=== PATIENT | female | born 1980 | race Caucasian/White ===

== ENCOUNTER 2019-03-23 13:34 | Emergency (ER) | payer OTHER ==
[~2019-03-23] VITALS: Ht 154.9 cm; Wt 54.4 kg
[~2019-03-23 13:34] MED LIST: BACTRIM DS TAB1 EACH PO; DOXYCYCLINE 10100 MG PO; HYDROCODON-ACE1 EAC7 PO; HYDROCODONE-AP1 EAC6 PO; LISINOPRIL10 MG PO; MIRALAX17 GM PO; PENICILLIN VK500 MG PO; PROZAC10 MG PO
[2019-03-23 15:41] VITALS: BP 132/87
== END 2019-03-23 15:43 | disposition home or self-care (01) ==
LOC: M.ERS 13:34
DX: S61.210A Laceration without foreign body of right index finger without damage to nail, initial encounter (principal); I10 Essential (primary) hypertension; Z87.442 Personal history of urinary calculi; Z88.2 Allergy status to sulfonamides; Z88.8 Allergy status to other drugs, medicaments and biological substances; W26.0XXA Contact with knife, initial encounter; Y92.89 Other specified places as the place of occurrence of the external cause; Y93.89 Activity, other specified; Y99.8 Other external cause status

== ENCOUNTER 2020-01-30 15:30 | Emergency (ER) | payer OTHER ==
[~2020-01-30] VITALS: Ht 157.5 cm; Wt 68.0 kg
[2020-01-30 15:49] LABS: URINE BILIRUBIN NEGATIVE (Negative); URINE BLOOD 3+ (Negative); URINE CLARITY CLOUDY; URINE COLOR STRAW; URINE GLUCOSE-RANDOM NEGATIVE (Negative); URINE KETONES NEGATIVE (Negative); URINE PROTEIN TRACE (Negative); URINE SPECIFIC GRAVITY >= 1.030 (1.005-1.030); URINE UROBILINOGEN 0.2 E.U./dl (0.2-1.0)
[2020-01-30 15:51] LABS: URINE LEUKOCYTES-REFLEX 3+ (Negative); URINE NITRITE-REFLEX POSITIVE (Negative)
[2020-01-30 16:07] LABS: BACTERIA-REFLEX >30 Many /HPF (None Seen); CASTS None Seen /LPF (None Seen); CRYSTALS None Seen /LPF (None Seen); SQUAMOUS >10 Many /LPF (0-3); URINE RBC >20 Many /HPF (0-2); URINE WBC-REFLEX >25 Many /HPF (0-5)
[2020-01-30 16:10] LABS: ABSOLUTE EOSINOPHILS 0.1 thou/uL (0.0-0.7); ABSOLUTE LYMPHOCYTES 0.8 thou/uL (0.8-5.3); ABSOLUTE MONOCYTES 0.6 thou/uL (0.0-1.2); ABSOLUTE NEUTROPHILS 6.8 thou/uL (1.6-8.1); BASOPHILS 0.2 %; EOSINOPHILS 0.8 %; HEMATOCRIT 32.5 % (37.0-47.0); HEMOGLOBIN 10.4 gm/dL (12.0-15.0); LYMPHOCYTES 9.6 %; MCH 23.1 pg (26.0-34.0); MCV 72.2 fL (80.0-100.0); MONOCYTES 6.7 %; MPV 7.8 fl. (7.2-11.1); NUCLEATED RBCS 0 /100WBC; PLATELET COUNT* 188 thou/uL (150-400); POLYS 82.7 %; RBC 4.51 mil/uL (4.20-5.00); RDW-CV 17.3 % (10.5-14.5); WBC 8.2 thou/uL (4.0-11.0)
[2020-01-30 16:17] LABS: CALCIUM 8.8 mg/dL (8.5-10.1); CREATININE 0.8 mg/dL (0.6-1.3); POTASSIUM 3.8 mmol/L (3.5-5.1)
[2020-01-30 16:26] LABS: ALBUMIN 3.6 g/dL (3.4-5.0); TOTAL BILIRUBIN 0.4 mg/dL (<0.1-1.0); TOTAL PROTEIN 7.2 g/dL (6.4-8.2)
[2020-01-30] MEDS ORDERED: PYRIDIUM200 M2 PO (17:06)
[2020-01-30] MEDS ORDERED: KEFLEX500 M2 PO (17:06)
[2020-01-30 17:13] VITALS: BP 143/89
== END 2020-01-30 17:13 | disposition home or self-care (01) ==
LOC: M.ERS 15:30
PROVIDERS: Physician Assistant
DX: N39.0 Urinary tract infection, site not specified (principal); D64.9 Anemia, unspecified; I10 Essential (primary) hypertension; Z88.1 Allergy status to other antibiotic agents; Z88.2 Allergy status to sulfonamides; Z87.442 Personal history of urinary calculi; Z98.51 Tubal ligation status